=== PATIENT | female | born 2000 | race Caucasian/White ===

== ENCOUNTER 2020-07-30 09:27 | Emergency (ER) | payer MEDICAID ==
[~2020-07-30] VITALS: Ht 157.5 cm; Wt 81.6 kg
--- NOTE | 2020-07-30 09:45 | NUR ---
"i want to ", superficial lacerations in left wrist. Patient is accompanied by her mother. Breathing even and unlabored, no sob noted, needs attended.
--- NOTE | 2020-07-30 09:49 | NUR ---
CALLED SECURITY FOR WANDING.
[2020-07-30 10:09] LABS: BASOPHILS # (AUTO) 0.1 /CMM (0.0-0.2); BASOPHILS % (AUTO) 0.6 % (0.0-2.0); EOSINOPHILS % (AUTO) 0.4 % (0.0-6.0); HEMATOCRIT 46 % (33-45); HEMOGLOBIN 15.8 g/dL (11.5-14.8); LYMPHOCYTES # (AUTO) 1.6 /CMM (0.8-4.8); LYMPHOCYTES % (AUTO) 15.1 % (20.0-44.0); MEAN CORPUSCULAR HGB CONC 34 g/dl (31.0-36.0); MEAN CORPUSCULAR VOLUME 92 fL (82-100); MONOCYTES # (AUTO) 0.6 /CMM (0.1-1.30); MONOCYTES % (AUTO) 5.4 % (2.0-12.0); NEUTROPHILS # (AUTO) 8.1 /CMM (1.8-8.9); NEUTROPHILS % (AUTO) 78.5 % (43.0-81.0); PLATELET COUNT (AUTO) 236 /CMM (150-450); RED BLOOD CELL COUNT(AUTO) 4.98 MIL/uL (4.0-5.2); WHITE BLOOD COUNT (AUTO) 10.3 K/uL (4.3-11.0)
[2020-07-30 10:16] LABS: CALCIUM, SERUM 8.8 mg/dL (8.5-10.1); CARBON DIOXIDE 28 mmol/L (21-32); CHLORIDE 104 mmol/L (98-107); CREATININE 0.8 mg/dL (0.6-1.3); GLUCOSE 118 mg/dL (74-106); POTASSIUM 3.5 mmol/L (3.5-5.1); SODIUM SERUM 141 mmol/L (136-145); UREA NITROGEN, BLOOD 6 mg/dL (7-18)
[2020-07-30 10:22] LABS: ACETAMINOPHEN 0 ug/ml (10-30); ALANINE AMINOTRANSFERASE 56 U/L (12-78); ALCOHOL, BLOOD < 3 mg/dL (0-0); ALKALINE PHOSPHATASE 76 U/L (46-116); ASPARTATE AMINOTRANSFERASE 26 U/L (15-37); BILIRUBIN,DIRECT 0.1 mg/dL (0.0-0.2); BILIRUBIN,TOTAL 0.4 mg/dL (0.2-1.0); TOTAL PROTEIN, SERUM 8.7 g/dL (6.4-8.2)
[2020-07-30 11:20] LABS: BILIRUBIN,URINE Negative (NEGATIVE); COLOR,URINE YELLOW (YELLOW); LEUKOCYTE ESTERASE ,URINE Negative (NEGATIVE); NITRITE, URINE Negative (NEGATIVE); PROTEIN,URINE Negative (NEGATIVE); UGLUCOSE Negative (NEGATIVE); UROBILINOGEN,URINE 0.2 EU/dL (0.2)
[2020-07-30 11:23] LABS: BACTERIA,URINE Few /HPF (None Seen); RBC,URINE 0-2 /HPF (0-2); SQUAMOUS EPITHELIAL CELL,UR Few /HPF (None Seen); WBC,URINE 0-2 /HPF (0-3)
--- NOTE | 2020-07-30 11:30 | NUR ---
MACHINE HOOP MAKER AT BEDSIDE FOR EVAL
--- NOTE | 2020-07-30 11:55 | NUR ---
LAB CALLED PT COVID RESULT NEGATIVE (-)
--- NOTE | 2020-07-30 13:30 | NUR ---
Social Service Consult: fitness services manager consult requested to assess the patient for current suicidal ideations. Patient is a 19-year-old, female. SW met with the patient at her hospital bed in the emergency department. Patient is alert and oriented x4. Patient is lethargic. Patient was admitted to the emergency department on 07/30/2020 for suicidal ideations. Patient has superficial cuts on her wrist and states that she is currently experiencing suicidal ideations. Patient denies any thoughts of homicide. Patient repeatedly stated, I am a psychopath. Patient agrees to voluntary admission to a psychiatric facility. Patient was unable to provide information on what mental illness she is currently diagnosed with but stated, I think I have Bipolar disorder. Patient is not currently experiencing hallucinations and delusions but stated she has experienced them in the past. Patients hallucinations are auditory and visual. Patient described her hallucinations as, I think things that arent real and I am manipulative. Patient reports she was at [facility] ([facility] [address] [place] [address] for the last few days and was discharged on 07/29/2020. Per patients sister Lina who was at the patients bedside, patient was prescribed Citalopram and Aripiprazole at [facility]. Patient is currently living at home with her parents at [address] [place] [id number]; [phone]. Per toxicology report, patient is positive for Cannabinoids. PLAN: MILLIE will contact patient resource coordinator Tyrese [phone] and fax clinicals to [facility] [phone] to see if a female bed is available. MILLIE will continue to follow up with nursing staff to ensure a safe discharge plan.
--- NOTE | 2020-07-30 13:40 | NUR ---
Setup Operator: MILLIE spoke to Tyrese [phone] who stated that there is a female bed available. Tyrese requested for MILLIE to fax clinicals. MILLIE faxed clinicals to [phone]. MILLIE will follow up, as needed.
--- NOTE | 2020-07-30 16:10 | NUR ---
PATIENT RESTING, NO DISTRESS NOTED.
--- NOTE | 2020-07-30 17:30 | NUR ---
SOL LOOKING INTO [place].
--- NOTE | 2020-07-30 17:50 | NUR ---
PATIENT A/OX4, ASSISTED TO RESTROOM, NO DISTRESS NOTED.
--- NOTE | 2020-07-30 23:45 | NUR ---
SPOKE WITH ART FROM [facility], NO BEDS AVAILABLE AT THIS TIME
--- NOTE | 2020-07-31 00:50 | NUR ---
PT AMBULATORY TO RESTROOM WITH STEADY GAIT. PT STATES SHE IS BEGINNING TO FEEL RESTLESS/ANXIOUS AND UNABLE TO SLEEP. AWARE
[2020-07-31] MEDS ORDERED: LORAZEPAM 0.5 MG TABLET ONE (00:59)
[2020-07-31] MEDS: LORAZEPAM 1 MG TABLET PO ONE (01:02)
--- NOTE | 2020-07-31 02:52 | NUR ---
PER ART FROM [facility], NO BED AVAILABLE AT THIS TIME
--- NOTE | 2020-07-31 04:34 | NUR ---
TRANSFER INFORMATION: PT ACCEPTED TO [facility] ACCEPTING MD: DR. SIMMONS/DR. ROSE NUMBER FOR REPORT: [phone] EXT [phone]
--- NOTE | 2020-07-31 05:05 | NUR ---
ATTEMPTED TO SET UP TRANSPORTATION VIA [facility]. PER RADHA, UNABLE TO FIND PT'S INSURANCE INFORMATION
--- NOTE | 2020-07-31 05:08 | NUR ---
[facility] ETA [phone]
--- NOTE | 2020-07-31 05:15 | NUR ---
REPORT GIVEN TO TITI DIAZ FROM [facility] FOR DEB
[2020-07-31 07:08] VITALS: BP 134/79
--- NOTE | 2020-07-31 07:08 | NUR ---
REPORT GIVEN TO [facility] FOR TRANSPORTATION DEB
== END 2020-07-31 07:10 ==
LOC: ER 09:46
DX: R45.851 Suicidal ideations (principal); F12.10 Cannabis abuse, uncomplicated; Z20.822 Contact with and (suspected) exposure to COVID-19
CPT/HCPCS: 36415; 80048; 80076; 80299; 80307; 80320; 81001; 85025; 87426; 99285; C9803; G0480